=== PATIENT | female | born 1990 | race Caucasian/White ===

== ENCOUNTER 2022-03-21 21:11 | Day surgery (SDC) | payer MEDICAID ==
[2022-03-21 21:58] LABS: BASOPHILS # (AUTO) 0.1 10^3/uL (0.0-0.1); BASOPHILS % (AUTO) 0.9 %; EOSINOPHILS # (AUTO) 0.4 10^3/uL (0.0-0.7); EOSINOPHILS % (AUTO) 4.1 %; HCT - HEMATOCRIT 39.3 % (37.0-47.0); HGB - HEMOGLOBIN 12.9 g/dL (12.0-16.0); LYMPHOCYTES % (AUTO) 32.3 %; MEAN CORPUSCULAR HEMOGLOBIN 30.4 pg (27.0-31.0); MEAN CORPUSCULAR HGB CONC 32.8 g/dL (32.0-36.0); MEAN CORPUSCULAR VOLUME 92.7 fL (81.0-99.0); MEAN PLATELET VOLUME 9.6 fL (7.9-10.8); MONOCYTES # (AUTO) 0.6 10^3/uL (0.0-1.0); MONOCYTES % (AUTO) 6.3 %; NEUTROPHILS # (AUTO) 5.2 10^3/uL (1.5-6.6); NEUTROPHILS % (AUTO) 56.2 %; PLT - PLATELET COUNT 214 10^3/uL (130-450); RED BLOOD COUNT 4.24 10^6/uL (4.20-5.40); RED CELL DISTRIBUTION WIDTH 13.2 % (12.0-15.0); WHITE BLOOD COUNT 9.3 x10^3/uL (4.8-10.8)
[2022-03-21 21:59] LABS: BILIRUBIN,URINE NEGATIVE (NEGATIVE); GLUCOSE, URINE (UA) NEGATIVE (NEGATIVE); KETONES,URINE (UA) NEGATIVE (NEGATIVE); LEUKOCYTE ESTERASE, URINE MODERATE (NEGATIVE); NITRITE,URINE NEGATIVE (NEGATIVE); OCCULT BLOOD,URINE NEGATIVE (NEGATIVE); PH,URINE 5.5 PH (5.0-7.5); PROTEIN,URINE NEGATIVE (NEGATIVE); UROBILINOGEN,URINE 0.2 (NORMAL) E.U./dL (NORMAL)
[2022-03-21 22:05] LABS: CLARITY,URINE HAZY (CLEAR)
[2022-03-21 22:12] LABS: RBC,URINE 0-5 /HPF (0-5); SQUAMOUS EPITHELIAL CELL,UR MOD Squamous (<= Few)
[2022-03-21 22:13] LABS: BACTERIA,URINE Few /HPF (None Seen)
[2022-03-21 22:13] LABS: ALBUMIN 4.2 g/dL (3.2-5.5); ALBUMIN/GLOBULIN RATIO 1.8 (1.0-2.2); BILIRUBIN,TOTAL 0.6 mg/dL (0.2-1.0); CALCIUM 9.2 mg/dL (8.5-10.3); CREATININE 0.6 mg/dL (0.4-1.0); POTASSIUM 3.9 mmol/L (3.5-5.0); TOTAL PROTEIN 6.6 g/dL (6.7-8.2)
--- NOTE | 2022-03-21 23:11 | Ultrasound Report ---
PROCEDURE: OB First Trimester w/TV INDICATIONS: ABDOMINAL CRAMPING PREG OUTSIDE/PRIOR DATING DATA: Last menstrual period (LMP): 01/30/2022. LMP-based estimated date of delivery (AMITA): 11/06/2022. TECHNIQUE: Real-time scanning was performed of the fetus and maternal pelvic organs, with image documentation. Endovaginal scanning was also performed to better visualize the fetus and maternal ovaries. COMPARISON: None. FINDINGS: Embryo: No intrauterine gestational sac. Small uterine subchorionic hemorrhage measuring at 2.5 x 2. 8 x 2.4 cm. Measurement variability in dating: +/- 4 weeks by LMP, +/- 7 days by mean sac diameter (use before 6 weeks gestation if crown-rump length not able to be measured), +/- 5 days by crown-rump length (6-12 weeks gestation). Maternal organs: Cyst adjacent to the left ovary with a hypoechoic/anechoic center with suspected yol k sac and pole measuring 0.4 cm, gestational age 6 weeks 1 day. Heart rate: Not seen. IMPRESSION: 1. Imaging findings consistent with left adnexa ectopic . Estimated gestational age 6 weeks 1 day. 2. No intrauterine gestational sac to suggest heterotopic . 3. Suspect small intrauterine subchorionic hemorrhage. Results were communicated to Dr. Alonzo at 03/21/2022 11:08 PM PDT. Reviewed by: Tay Moe MD on 03/21/2022 11:10 PM PDT Approved by: Tay Moe MD on 03/21/2022 11:10 PM PDT Station ID: [id number]
[2022-03-21] MEDS ORDERED: RHO(D) IMMUNE GLOBULIN 300 MCG SYRINGE IM ONE (23:39)
[2022-03-22] MEDS ORDERED: RHO(D) IMMUNE GLOBULIN 300 MCG SYRINGE ONE (00:24)
--- NOTE | 2022-03-22 00:30 | ED Physician Documentation ---
PD HPI ABD PAIN - Stated complaint Stated Complaint: ECTOPIC ? - Chief complaint Chief Complaint: Abd Pain - History obtained from History obtained from: Patient - Additional information Additional information: Patient is a G2, P0 presenting for evaluation of concerns for ectopic . Her last menstrual period was January 30. She has been evaluated at [facility] in [place] as she has been considering an elective . She has had multiple ultrasounds including yesterday as well as lab draws with no signs of an intrauterine . Based on her elevated hCG levels, the expressed concern for possible ectopic and called her this afternoon to come to the emergency department for evaluation. Patient reports having lower abdominal cramping for the last week but no vaginal bleeding. She denies dizziness, lightheadedness or syncope. Her blood type is O-. She denies using other medications. Review of Systems Constitutional: denies: Fever Nose: denies: Congestion Cardiac: denies: Chest pain / pressure GI: reports: Abdominal Pain (Lower abdominal cramping). denies: Vomiting : denies: Dysuria, Discharge, Vaginal bleeding Skin: denies: Rash Musculoskeletal: denies: Back pain Neurologic: denies: Headache PD PAST MEDICAL HISTORY - Present Medications Home Medications: Ambulatory Orders Medication Instructions Recorded Confirmed No Known Home Medications 03/21/22 03/21/22 - Allergies Allergies/Adverse Reactions: Allergies Allergy/AdvReac Type Severity Reaction Status Date / Time No Known Drug Allergies Allergy Verified 03/21/22 21:22 PD ED PE NORMAL - General General: Alert and oriented X 3, No acute distress, Well developed/nourished - HEENT HEENT: Atraumatic, Moist mucous membranes - Neck Neck: Supple, no meningeal sign - Cardiac Cardiac: RRR, Strong equal pulses - Respiratory Respiratory: No respiratory distress, Clear bilaterally - Abdomen Abdomen: Normal bowel sounds, Soft, Non tender, Non distended - Female Female : Deferred - Derm Derm: Warm and dry - Extremities Extremities: No edema - Neuro Neuro: Normal speech Results - Vitals Vitals: Vital Signs - 24 hr 03/21/22 03/21/22 03/22/22 21:17 23:19 00:17 Temperature 36.3 C L Heart Rate 74 60 64 Respiratory 18 18 16 Rate Blood Pressure 116/56 L 103/55 L 102/59 L O2 Saturation 99 99 99 Oxygen O2 Source Room air - Labs Labs: Laboratory Tests 03/21/22 03/21/22 03/21/22 21:45 21:49 21:49 WBC 9.3 RBC 4.24 Hgb 12.9 Hct 39.3 MCV 92.7 MCH 30.4 MCHC 32.8 RDW 13.2 Plt Count 214 MPV 9.6 Neut # (Auto) 5.2 Lymph # (Auto) 3.0 [place] # (Auto) 0.6 Eos # (Auto) 0.4 Baso # (Auto) 0.1 Absolute Nucleated RBC 0.00 Nucleated RBC % 0.0 Sodium Potassium Chloride Carbon Dioxide Anion Gap BUN Creatinine Estimated GFR (MDRD) Glucose Calcium Total Bilirubin AST ALT Alkaline Phosphatase Total Protein Albumin Globulin Albumin/Globulin Ratio Lipase HCG, Quant Urine Color STRAW Urine Clarity HAZY Urine pH 5.5 Ur Specific [place] <=1.005 Urine Protein NEGATIVE Urine Glucose (UA) NEGATIVE Urine Ketones NEGATIVE Urine Occult Blood NEGATIVE Urine Nitrite NEGATIVE Urine Bilirubin NEGATIVE Urine Urobilinogen 0.2 (NORMAL) Ur Leukocyte Esterase MODERATE H Urine RBC 0-5 Urine WBC 6-10 H Ur Squamous Epith Cells MOD Squamous H Urine Bacteria Few Ur Microscopic Review INDICATED Urine Culture Comments NOT INDICATED Blood Type O NEGATIVE 03/21/22 03/21/22 21:49 21:49 WBC RBC Hgb Hct MCV MCH MCHC RDW Plt Count MPV Neut # (Auto) Lymph # (Auto) [place] # (Auto) Eos # (Auto) Baso # (Auto) Absolute Nucleated RBC Nucleated RBC % Sodium 133 L Potassium 3.9 Chloride 104 Carbon Dioxide 22 Anion Gap 7.0 BUN 10 Creatinine 0.6 Estimated GFR (MDRD) 117 Glucose 82 Calcium 9.2 Total Bilirubin 0.6 AST 15 ALT 15 Alkaline Phosphatase 37 L Total Protein 6.6 L Albumin 4.2 Globulin 2.4 Albumin/Globulin Ratio 1.8 Lipase 38 HCG, Quant 39540.00 Urine Color Urine Clarity Urine pH Ur Specific [place] Urine Protein Urine Glucose (UA) Urine Ketones Urine Occult Blood Urine Nitrite Urine Bilirubin Urine Urobilinogen Ur Leukocyte Esterase Urine RBC Urine WBC Ur Squamous Epith Cells Urine Bacteria Ur Microscopic Review Urine Culture Comments Blood Type PD MEDICAL DECISION MAKING - ED course Complexity details: reviewed results, re-evaluated patient, d/w patient ED course: 2312 D/ Dr. Coombs (OB) Regarding ectopic . He will come evaluate the patient. Patient presenting with concerns for ectopic . Hemodynamically she is stable. Labs reviewed. She is O-. Ultrasound is concerning for ectopic in the left adnexa. hCG level is 17,000. Discussed with on-call OB who is evaluated the patient and consented her for D&C. He has ordered RhoGAM. Patient has remained hemodynamically stable here. - Critical Care Time(min): 31 Time Includes: Direct patient care, Reassess patient, Medical consult Departure - Departure Disposition: ED Transfer to [facility] Clinical Impression: Ectopic Condition: Stable
[2022-03-22] MEDS ORDERED: PROPOFOL 200 MG/20 ML VIAL IVP ONE (00:33)
[2022-03-22] MEDS ORDERED: MIDAZOLAM 2 MG/2 ML VIAL ONE (00:33)
[2022-03-22] MEDS ORDERED: SUCCINYLCHOLINE 200 MG/10 ML VIAL ONE (00:34)
[2022-03-22] MEDS ORDERED: ROCURONIUM 50 MG/5 ML VIAL ONE ×2 (00:34→03:25)
[2022-03-22] MEDS ORDERED: fentaNYL 100 MCG/2 ML VIAL ONE (00:34)
[2022-03-22] MEDS ORDERED: CEFAZOLIN 2G/50ML 0.9% NS 2 GM/50 ML BAG IV ONE (00:47)
[2022-03-22] MEDS ORDERED: BUPIVACAINE 0.25% PF 10 ML VIAL ONE (00:59)
[2022-03-22] MEDS ORDERED: LIDOCAINE MPF 2%-EPI 1:200000 20 ML VIAL ONE (00:59)
[2022-03-22] MEDS ORDERED: BUPIVACAINE 0.5% PF 30 ML VIAL ONE (01:00)
[2022-03-22] MEDS ORDERED: DEXAMETHASONE 4 MG/ML VIAL ONE (01:22)
[2022-03-22] MEDS ORDERED: ONDANSETRON 4 MG/2 ML VIAL ONE (01:22)
--- NOTE | 2022-03-22 01:26 | ANESTHESIA ---
Pre-Anesthesia VS, & Labs - Diagnosis Left adenxal ectopic - Procedure laparoscopic left salpingectomy Vital Signs: Temp Pulse Resp BP Pulse Ox O2 Flow Rate 36.3 C L 64 16 102/59 L 99 03/21/22 21:17 03/22/22 00:17 03/22/22 00:17 03/22/22 00:17 03/22/22 00:17 Height: 6 ft Weight (kg): 67.222 kg Body Mass Index: 20.0 BMI Classification: Normal - NPO Other Last Food Intake: 2030-salad with chicken - Is Patient ?: Yes - Lab Results Current Lab Results: Laboratory Tests 03/21/22 21:49: HCG, Quant 75427.00 03/21/22 21:49: Sodium 133 L, Potassium 3.9, Chloride 104, Carbon Dioxide 22, Anion Gap 7.0, BUN 10, Creatinine 0.6, Estimated GFR (MDRD) 117, Glucose 82, Calcium 9.2, Total Bilirubin 0.6, AST 15, ALT 15, Alkaline Phosphatase 37 L, Total Protein 6.6 L, Albumin 4.2, Globulin 2.4, Albumin/Globulin Ratio 1.8, Lipase 38 03/21/22 21:49: WBC 9.3, RBC 4.24, Hgb 12.9, Hct 39.3, MCV 92.7, MCH 30.4, MCHC 32.8, RDW 13.2, Plt Count 214, MPV 9.6, Neut # (Auto) 5.2, Lymph # (Auto) 3.0, [place] # (Auto) 0.6, Eos # (Auto) 0.4, Baso # (Auto) 0.1, Absolute Nucleated RBC 0.00, Nucleated RBC % 0.0 03/21/22 21:49: Blood Type O NEGATIVE Lab results reviewed: Yes Fish Bones: 03/21/22 21:49 03/21/22 21:49 Home Medications and Allergies Home Medications: Ambulatory Orders No Known Home Medications 03/21/22 No Known Home Medications 03/21/22 Allergies/Adverse Reactions: Allergies Allergy/AdvReac Type Severity Reaction Status Date / Time No Known Drug Allergies Allergy Verified 03/21/22 21:22 Anes History & Medical History - Anesthetic History Family history of Anesthesia Complications: Denies Family history of Malignant Hyperthermia: Denies - Medical History Cardiovascular: reports: None Pulmonary: reports: None Gastrointestinal: reports: None Urinary: reports: None Neuro: reports: None Musculoskeletal: reports: None Endocrine/Autoimmune: reports: None Blood Disorders: reports: None Skin: reports: None Psychosocial: reports: Depression, Anxiety, Cannabis (smokes daily), Other (remote history of meth use) Exam General: Alert, Oriented x3, Cooperative, No acute distress Mouth Openin Fingerbreadth Neck Mobility: Normal Mallampati classification: I Thyromental Distance: 4-6 cm Mental/Cognitive Status: Alert/Oriented X3, Normal for patient Plan Anesthesia Type: General (RSI) Consent for Procedure(s) Verified and Reviewed: Yes Code Status: Attempt Resuscitation ASA classification: 2-Mild systemic disease Is this case an emergency?: Yes
[2022-03-22] MEDS ORDERED: GLYCOPYRROLATE 1 MG/5 ML VIAL ONE (01:55)
[2022-03-22] MEDS ORDERED: ATROPINE 0.4 MG/ML VIAL IVP ONE (02:02)
[2022-03-22] MEDS ORDERED: BUPIVACAINE 0.25% PF 10 ML VIAL SUBQ ONE (02:09)
[2022-03-22] MEDS ORDERED: ACETAMINOPHEN 1,000 MG/100 ML 1,000 MG/100 ML BAG IV ONE (02:48)
[2022-03-22] MEDS ORDERED: HYDROmorphone 1 MG/ML CARPUJECT ONE (02:50)
[2022-03-22] MEDS ORDERED: SEVOFLURANE 250 ML LIQUID INH ONE (03:39)
[2022-03-22] MEDS ORDERED: SUGAMMADEX 200 MG/2 ML VIAL IVP ONE (03:44)
[2022-03-22] MEDS ORDERED: LACTATED RINGERS 1,000 ML IV ONE (03:58)
[2022-03-22] MEDS ORDERED: ONDANSETRON 4 MG/2 ML VIAL IVP PRN ×2 (04:06→04:15)
[2022-03-22] MEDS ORDERED: MORPHINE 2 MG/ML CARPUJECT IVP PRN ×2 (04:06→04:15)
[2022-03-22] MEDS ORDERED: NALOXONE 0.4 MG/ML VIAL IVP PRN ×2 (04:06→04:15)
[2022-03-22] MEDS ORDERED: HYDROmorphone 0.5 MG/0.5 ML SYRINGE IVP PRN ×2 (04:06→04:15)
[2022-03-22] MEDS ORDERED: ATROPINE ABBOJECT 1 MG/10 ML SYRINGE IVP PRN ×2 (04:06→04:15)
[2022-03-22] MEDS ORDERED: fentaNYL 100 MCG/2 ML VIAL IVP PRN ×2 (04:06→04:15)
[2022-03-22] MEDS ORDERED: HYDROcod/ACETAM 5/325 MG TABLET PO PRN (04:21)
--- NOTE | 2022-03-22 04:21 | ANESTHESIA POST OP EVALUATION ---
Anesthesia Post Eval - Post Anesthesia Eval Vitals: Last Vital Signs Temp 37.3 C 03/22/22 04:10 Pulse 97 03/22/22 04:15 Resp 14 03/22/22 04:15 BP 99/73 03/22/22 04:15 Pulse Ox 100 03/22/22 04:15 O2 Flow Rate CV Function Including HR & BP: Stable Pain Control: Satisfactory Nausea & Vomiting: Negative Mental Status: Baseline Respiratory Status: Airway Patent Hydration Status: Satisfactory Anesthesia Complications: None
--- NOTE | 2022-03-22 04:29 | HISTORY & PHYSICAL EXAMINATION ---
HPI - History Obtained From History obtained from: Patient Exam limitations: Clinical condition - History of Present Illness Severity at the worst: reports: Mild Pain Quality: reports: Throbbing Context-Pain started w/: reports: Palpation, Position Timing: reports: Intermittent Duration: reports: Days: Worsened by: reports: Palpation ([facility] and they found that she had an left tubal . She came to the ED and was confirmed. Operation was suggested and she accepted.) PMH/PSH - Past Medical History Cardiovascular: positive: None Respiratory: positive: None Neuro: positive: None Endocrine/Autoimmune: positive: None GI: positive: None : positive: None Musculoskeletal: positive: None Derm: positive: None Meds/Allgy - Home Medications Home Medications: Ambulatory Orders Medication Instructions Recorded Confirmed Acetaminophen [Acetaminophen Extra 1,000 mg PO Q8H PRN #60 tablet 03/22/22 Strength] oxyCODONE [Roxicodone] 2.5 - 5 mg PO Q4H PRN #24 tablet 03/22/22 - Allergies Allergies/Adverse Reactions: Allergies Allergy/AdvReac Type Severity Reaction Status Date / Time No Known Drug Allergies Allergy Verified 03/21/22 21:22 Exam - Vital Signs Vital Signs: Vital Signs x48h Temp Pulse Resp BP Pulse Ox 03/22/22 04:20 85 10 L 104/61 98 03/22/22 04:15 97 14 99/73 100 03/22/22 04:10 99.1 F 88 10 L 94/58 L 99 03/22/22 04:07 91 10 L 103/62 100 03/22/22 04:02 101 H 14 114/72 100 03/22/22 03:58 99.9 F 117 H 16 102/56 L 100 03/22/22 00:17 64 16 102/59 L 99 03/21/22 23:19 60 18 103/55 L 99 03/21/22 21:17 97.3 F L 74 18 116/56 L 99 Results - Lab Results Fish Bones: 03/21/22 21:49 03/21/22 21:49 Other Lab Results: Lab Results x24hrs 03/22/22 03/21/22 03/21/22 Range/Units 00:39 21:49 21:49 WBC (4.8-10.8) x10^3/uL RBC (4.20-5.40) 10^6/uL Hgb (12.0-16.0) g/dL Hct (37.0-47.0) % MCV (81.0-99.0) fL MCH (27.0-31.0) pg MCHC (32.0-36.0) g/dL RDW (12.0-15.0) % Plt Count (130-450) 10^3/uL MPV (7.9-10.8) fL Neut # (Auto) (1.5-6.6) 10^3/uL Lymph # (Auto) (1.5-3.5) 10^3/uL [place] # (Auto) (0.0-1.0) 10^3/uL Eos # (Auto) (0.0-0.7) 10^3/uL Baso # (Auto) (0.0-0.1) 10^3/uL Absolute Nucleated RBC x10^3/uL Nucleated RBC % /100WBC Sodium 133 L (135-145) mmol/L Potassium 3.9 (3.5-5.0) mmol/L Chloride 104 (101-111) mmol/L Carbon Dioxide 22 (21-32) mmol/L Anion Gap 7.0 (6-13) BUN 10 (6-20) mg/dL Creatinine 0.6 (0.4-1.0) mg/dL Estimated GFR (MDRD) 117 (>89) Glucose 82 (70-100) mg/dL Calcium 9.2 (8.5-10.3) mg/dL Total Bilirubin 0.6 (0.2-1.0) mg/dL AST 15 (10-42) IU/L ALT 15 (10-60) IU/L Alkaline Phosphatase 37 L (42-121) IU/L Total Protein 6.6 L (6.7-8.2) g/dL Albumin 4.2 (3.2-5.5) g/dL Globulin 2.4 (2.1-4.2) g/dL Albumin/Globulin Ratio 1.8 (1.0-2.2) Lipase 38 (22-51) U/L HCG, Quant 38885.00 mIU/mL Urine Color Urine Clarity (CLEAR) Urine pH (5.0-7.5) PH Ur Specific [place] (1.002-1.030) Urine Protein (NEGATIVE) mg/dL Urine Glucose (UA) (NEGATIVE) mg/dL Urine Ketones (NEGATIVE) mg/dL Urine Occult Blood (NEGATIVE) Urine Nitrite (NEGATIVE) Urine Bilirubin (NEGATIVE) Urine Urobilinogen (NORMAL) E.U./dL Ur Leukocyte Esterase (NEGATIVE) Urine RBC (0-5) /HPF Urine WBC (0-5) /HPF Ur Squamous Epith Cells (<= Few) Urine Bacteria (None Seen) /HPF Ur Microscopic Review Urine Culture Comments SARS-CoV-2 (PCR) NOT DETECTED Blood Type 03/21/22 03/21/22 03/21/22 Range/Units 21:49 21:49 21:45 WBC 9.3 (4.8-10.8) x10^3/uL RBC 4.24 (4.20-5.40) 10^6/uL Hgb 12.9 (12.0-16.0) g/dL Hct 39.3 (37.0-47.0) % MCV 92.7 (81.0-99.0) fL MCH 30.4 (27.0-31.0) pg MCHC 32.8 (32.0-36.0) g/dL RDW 13.2 (12.0-15.0) % Plt Count 214 (130-450) 10^3/uL MPV 9.6 (7.9-10.8) fL Neut # (Auto) 5.2 (1.5-6.6) 10^3/uL Lymph # (Auto) 3.0 (1.5-3.5) 10^3/uL [place] # (Auto) 0.6 (0.0-1.0) 10^3/uL Eos # (Auto) 0.4 (0.0-0.7) 10^3/uL Baso # (Auto) 0.1 (0.0-0.1) 10^3/uL Absolute Nucleated RBC 0.00 x10^3/uL Nucleated RBC % 0.0 /100WBC Sodium (135-145) mmol/L Potassium (3.5-5.0) mmol/L Chloride (101-111) mmol/L Carbon Dioxide (21-32) mmol/L Anion Gap (6-13) BUN (6-20) mg/dL Creatinine (0.4-1.0) mg/dL Estimated GFR (MDRD) (>89) Glucose (70-100) mg/dL Calcium (8.5-10.3) mg/dL Total Bilirubin (0.2-1.0) mg/dL AST (10-42) IU/L ALT (10-60) IU/L Alkaline Phosphatase (42-121) IU/L Total Protein (6.7-8.2) g/dL Albumin (3.2-5.5) g/dL Globulin (2.1-4.2) g/dL Albumin/Globulin Ratio (1.0-2.2) Lipase (22-51) U/L HCG, Quant mIU/mL Urine Color STRAW Urine Clarity HAZY (CLEAR) Urine pH 5.5 (5.0-7.5) PH Ur Specific [place] <=1.005 (1.002-1.030) Urine Protein NEGATIVE (NEGATIVE) mg/dL Urine Glucose (UA) NEGATIVE (NEGATIVE) mg/dL Urine Ketones NEGATIVE (NEGATIVE) mg/dL Urine Occult Blood NEGATIVE (NEGATIVE) Urine Nitrite NEGATIVE (NEGATIVE) Urine Bilirubin NEGATIVE (NEGATIVE) Urine Urobilinogen 0.2 (NORMAL) (NORMAL) E.U./dL Ur Leukocyte Esterase MODERATE H (NEGATIVE) Urine RBC 0-5 (0-5) /HPF Urine WBC 6-10 H (0-5) /HPF Ur Squamous Epith Cells MOD Squamous H (<= Few) Urine Bacteria Few (None Seen) /HPF Ur Microscopic Review INDICATED Urine Culture Comments NOT INDICATED SARS-CoV-2 (PCR) Blood Type O NEGATIVE
--- NOTE | 2022-03-22 04:33 | OPERATIVE REPORT ---
Operative Report - General Planned Procedure: Laparoscopy and suction D&C. Pre-Op Diagnosis: Left tubal ectopic Procedure Performed: Laparoscopic left salpingectomy and suction D&C Lysis of extensive pelvic adhesions Post Op Diagnosis: Left tubal ectopic and severe pelvic adhesions, - Procedure Note Primary Surgeon: Dr. Coombs Anesthesia Technique: General ET tube Pathology: Left fallopian tube and products of conception and an endometrial curette Estimated Blood Loss (mL): 50 Indications: Elevated beta hCG without gestational sac by ultrasound Findings: Left tubal ectopic with extensive pelvic adhesions and perihepatic adhesion Uterine cavity 8 centimeter in depth Complications: None - Other Other Information/Narrative: Date of surgery:March 22, 2022 Surgeon: Dr. 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 Procedure performed: Laparoscopy left salpingectomy lysis of adhesions and Suction dilation and curettage Anesthesia: General Estimated blood loss: Findings: Appearance of external genitalia normal appearance of vagina normal appearance of cervix normal uterine size 8 centimeter mid position mobile adnexal masses:Not well palpated The uterus was slightly enlarged and covered by omental adhesions The left adnexa was not well visualized due to this omental adhesions and when it was visualized after dissection of the adhesion the left tube showed intra tubal ectopic in the ampulla portion and ovary was severely covered by the adhesion. Right tube was normal in appearance and in length but ovary was a covered by the severe adhesions. There was extensive perihepatic adhesion There was a mild hemoperitoneum Specimen: Products of conception with left tube and endometrial curettings Complications: None Disposition: Stable to PACU Indications for procedure History: This is a 32-year-old 2 para 0 AB 1 ectopic 1 who presented to the emergency department with abnormal ultrasound finding and occasional abdominal pain. Quantitative beta-hCG was performed and noted to be 17,000. On ultrasound the following findings were noted: No intrauterine gestational sac was noted and there was a complex left adnexal mass and gestational sac was noted without heart movement. Small amount of free fluid was noted in the cul-de-sac. The patient was noted to be hemodynamically stable. The patient was found to be on inappropriate candidate for medical management due to high level of beta-hCG and the size of gestational sac of the left tube. Surgical risk: The patient was informed of the risks and benefits of a diagnostic laparoscopy. The risks included, but were not limited to, bleeding, infection, injury to internal organs, possible blood transfusion, possible hysterectomy, and possible oophorectomy. The patient was counseled on the potential loss of fertility following unilateral salpingectomy. The patient's was counseled on possible laparotomy and all other indicated procedures. The patient expressed understanding of the risks involved, all questions were answered, and the patient consented to the procedure. Description of the procedure The patient was taken to the operating room where a timeout was performed to confirm correct patient and correct procedure. The patient was given preoperative prophylactic intravenous antibiotics. General anesthesia was established. The patient was then positioned on the operating table in the dorsal lithotomy position with the legs supported using stirrups. All pressure points were padded and a Nisha hugger was placed to maintain control of core body temperature. The patient was then prepped and draped in the usual sterile fashion. A bimanual exam was performed and the uterus was found to be slightly increased in size, midline, and mobile. The adnexa were palpated bilaterally and the finding was not conclusive. A straight cath was used to empty the bladder. Operative technique: The speculum was inserted and anterior lip of the cervix was grasped with a single-tooth tenaculum. No active bleeding was noted. The uterine cavity was measured 8 cm and the cervix was dilated with a 12 Hanks dilator. With #2 sharp curette the entire endometrial cavity was systemically curettaged and moderate amount of tissue was obtained. The 8 mm suction curette was advanced to the fundus and then suction was applied and the curette was rotated in a circular fashion as the curette was withdrawn. The suction was relieved at the internal os and a curette was again advanced to the fundus. This was repeated 3 times. When no further tissues were obtained, the suction curette was withdrawn, and a sharp curette was advanced to the fundus. The uterus was curetted in a systematic manner covering all surfaces until a gritty texture was noted throughout. The suction curette was introduced one final time and the uterine cavity was cleared of any remaining curettings. The suction curette was then withdrawn and the single-tooth tenaculum was removed from the anterior lip of the cervix. The products obtained from the suction dilation and curetting did not appear consistent with products of conception. The decision was then made to proceed with the diagnostic laparoscopy. A HUMI manipulator was placed through the cervix into the uterus for uterine manipulation. The speculum was then removed from the vagina. Good hemostasis was noted. Attention was turned to the abdomen where a 5 mm horizontal incision was made in the infraumbilical region and a 5 mm trocar was introduced under direct visualization with the laparoscope within the trocar. It was not satisfactory therefore Veress needle was used to produce pneumoperitoneum. Safety test was given by using water through the Veress needle. A 5 mm trocar was introduced after achievement of pneumoperitoneum. The laparoscope was then placed through the trocar and diagnostic laparoscopy was performed. The findings was as above described. A 5 mm horizontal incision was made in the left lower quadrant after injecting quarter percent of Marcaine. A 5 mm trocar was introduced under direct visualization. The left fallopian tube was noted to be grossly swollen with an ectopic . This was well visualized after dissecting the omental adhesion on the posterior of the uterus. A 10 mm incision was then made in the right lower quadrant after injecting the local anesthetics . A 10 mm trocar was then introduced under direct visualization. Due to extensive adhesion and damage to the tube, the decision was made to proceed with a salpingectomy. The fallopian tube was grasped at the fimbriated end using atraumatic graspers and the LigaSure was used to coagulate and cut the fallopian tube proximal to the ectopic. The fallopian tube was then coagulated and cut distal to the ectopic . The mesosalpinx was coagulated and cut using the LigaSure. The portion of the fallopian tube containing products of conception was then placed into an Endobag, removed, and sent to pathology. Meticulous progressive lysis of adhesion was made over the left ovary and extensive adhesion was noted on the right side. The fallopian tube was normal in appearance and in length after dissecting all the adhesions and ovary was normal in appearance as well. 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 This was all dissected by using laparoscopic scissors and LigaSure. Free blood was suctioned from the cul-de-sac and hemostasis was achieved by co agulating with monopolar scissors and LigaSure. The pelvis was thoroughly irrigated and good hemostasis was noted. The 10 mm port was removed and the fascial incision was closed using 2-0 Vicryl in interrupted sutures and the pneumoperitoneum was evacuated and the remaining ports were removed. The skin was reapproximated using Dermabond. Attention was then turned to the perineum. The HUMI manipulator was removed and hemostasis was confirmed. All sponges, needle, and instrument counts were noted to be correct x2 at the end of the procedure. The patient tolerated the procedure well and was transferred to the recovery room in stable condition.
[2022-03-22] MEDS ORDERED: LACTATED RINGERS 1,000 ML IV SCH ×2 (05:00)
[2022-03-22 09:11] VITALS: BP 108/53
--- NOTE | 2022-03-22 10:25 | PROVIDER PROGRESS NOTE ---
Subjective - Prog Note Date Prog Note Date: 03/22/22 Prog Note Time: 10:20 - Subjective Pt reports feeling: Improved (Feeling good, no need for pain medication Wound: C/D/I) Objective - Vital Signs/Intake & Output Vital Signs: Vital Signs x48h Temp Pulse Pulse Resp BP BP Pulse Ox 03/22/22 09:00 50 L 16 108/53 L 99 03/22/22 08:00 98.1 F 51 L 15 102/52 L 98 03/22/22 07:01 55 L 16 114/53 L 90 L 03/22/22 06:30 53 L 16 110/54 L 99 03/22/22 06:00 78 18 99/47 L 97 03/22/22 05:30 68 18 98/45 L 96 03/22/22 05:15 67 16 98/44 L 95 03/22/22 05:00 98.2 F 71 16 94/44 L 96 03/22/22 04:59 98.2 F 71 16 93/50 L 96 03/22/22 04:35 99.0 F 91 17 103/57 L 100 03/22/22 04:30 78 10 L 98/54 L 97 03/22/22 04:25 100 24 112/61 100 03/22/22 04:20 85 10 L 104/61 98 03/22/22 04:15 97 14 99/73 100 03/22/22 04:10 99.1 F 88 10 L 94/58 L 99 03/22/22 04:07 91 10 L 103/62 100 03/22/22 04:02 101 H 14 114/72 100 03/22/22 03:58 99.9 F 117 H 16 102/56 L 100 Intake & Output: Intake & Output 03/19/22 03/20/22 03/21/22 03/22/22 23:59 23:59 23:59 23:59 Intake Total 230 Balance 230 - Objective Abdomen: positive: Non-tender (soft and active bowel sound) - Lab Results Fish Bones: 03/21/22 21:49 03/21/22 21:49 Other Labs: Lab Results x24hrs 03/22/22 03/21/22 03/21/22 Range/Units 00:39 21:49 21:49 WBC (4.8-10.8) x10^3/uL RBC (4.20-5.40) 10^6/uL Hgb (12.0-16.0) g/dL Hct (37.0-47.0) % MCV (81.0-99.0) fL MCH (27.0-31.0) pg MCHC (32.0-36.0) g/dL RDW (12.0-15.0) % Plt Count (130-450) 10^3/uL MPV (7.9-10.8) fL Neut # (Auto) (1.5-6.6) 10^3/uL Lymph # (Auto) (1.5-3.5) 10^3/uL [place] # (Auto) (0.0-1.0) 10^3/uL Eos # (Auto) (0.0-0.7) 10^3/uL Baso # (Auto) (0.0-0.1) 10^3/uL Absolute Nucleated RBC x10^3/uL Nucleated RBC % /100WBC Sodium 133 L (135-145) mmol/L Potassium 3.9 (3.5-5.0) mmol/L Chloride 104 (101-111) mmol/L Carbon Dioxide 22 (21-32) mmol/L Anion Gap 7.0 (6-13) BUN 10 (6-20) mg/dL Creatinine 0.6 (0.4-1.0) mg/dL Estimated GFR (MDRD) 117 (>89) Glucose 82 (70-100) mg/dL Calcium 9.2 (8.5-10.3) mg/dL Total Bilirubin 0.6 (0.2-1.0) mg/dL AST 15 (10-42) IU/L ALT 15 (10-60) IU/L Alkaline Phosphatase 37 L (42-121) IU/L Total Protein 6.6 L (6.7-8.2) g/dL Albumin 4.2 (3.2-5.5) g/dL Globulin 2.4 (2.1-4.2) g/dL Albumin/Globulin Ratio 1.8 (1.0-2.2) Lipase 38 (22-51) U/L HCG, Quant 52392.00 mIU/mL Urine Color Urine Clarity (CLEAR) Urine pH (5.0-7.5) PH Ur Specific [place] (1.002-1.030) Urine Protein (NEGATIVE) mg/dL Urine Glucose (UA) (NEGATIVE) mg/dL Urine Ketones (NEGATIVE) mg/dL Urine Occult Blood (NEGATIVE) Urine Nitrite (NEGATIVE) Urine Bilirubin (NEGATIVE) Urine Urobilinogen (NORMAL) E.U./dL Ur Leukocyte Esterase (NEGATIVE) Urine RBC (0-5) /HPF Urine WBC (0-5) /HPF Ur Squamous Epith Cells (<= Few) Urine Bacteria (None Seen) /HPF Ur Microscopic Review Urine Culture Comments SARS-CoV-2 (PCR) NOT DETECTED Blood Type 03/21/22 03/21/22 03/21/22 Range/Units 21:49 21:49 21:45 WBC 9.3 (4.8-10.8) x10^3/uL RBC 4.24 (4.20-5.40) 10^6/uL Hgb 12.9 (12.0-16.0) g/dL Hct 39.3 (37.0-47.0) % MCV 92.7 (81.0-99.0) fL MCH 30.4 (27.0-31.0) pg MCHC 32.8 (32.0-36.0) g/dL RDW 13.2 (12.0-15.0) % Plt Count 214 (130-450) 10^3/uL MPV 9.6 (7.9-10.8) fL Neut # (Auto) 5.2 (1.5-6.6) 10^3/uL Lymph # (Auto) 3.0 (1.5-3.5) 10^3/uL [place] # (Auto) 0.6 (0.0-1.0) 10^3/uL Eos # (Auto) 0.4 (0.0-0.7) 10^3/uL Baso # (Auto) 0.1 (0.0-0.1) 10^3/uL Absolute Nucleated RBC 0.00 x10^3/uL Nucleated RBC % 0.0 /100WBC Sodium (135-145) mmol/L Potassium (3.5-5.0) mmol/L Chloride (101-111) mmol/L Carbon Dioxide (21-32) mmol/L Anion Gap (6-13) BUN (6-20) mg/dL Creatinine (0.4-1.0) mg/dL Estimated GFR (MDRD) (>89) Glucose (70-100) mg/dL Calcium (8.5-10.3) mg/dL Total Bilirubin (0.2-1.0) mg/dL AST (10-42) IU/L ALT (10-60) IU/L Alkaline Phosphatase (42-121) IU/L Total Protein (6.7-8.2) g/dL Albumin (3.2-5.5) g/dL Globulin (2.1-4.2) g/dL Albumin/Globulin Ratio (1.0-2.2) Lipase (22-51) U/L HCG, Quant mIU/mL Urine Color STRAW Urine Clarity HAZY (CLEAR) Urine pH 5.5 (5.0-7.5) PH Ur Specific [place] <=1.005 (1.002-1.030) Urine Protein NEGATIVE (NEGATIVE) mg/dL Urine Glucose (UA) NEGATIVE (NEGATIVE) mg/dL Urine Ketones NEGATIVE (NEGATIVE) mg/dL Urine Occult Blood NEGATIVE (NEGATIVE) Urine Nitrite NEGATIVE (NEGATIVE) Urine Bilirubin NEGATIVE (NEGATIVE) Urine Urobilinogen 0.2 (NORMAL) (NORMAL) E.U./dL Ur Leukocyte Esterase MODERATE H (NEGATIVE) Urine RBC 0-5 (0-5) /HPF Urine WBC 6-10 H (0-5) /HPF Ur Squamous Epith Cells MOD Squamous H (<= Few) Urine Bacteria Few (None Seen) /HPF Ur Microscopic Review INDICATED Urine Culture Comments NOT INDICATED SARS-CoV-2 (PCR) Blood Type O NEGATIVE - Diagnostic Imaging Diagnostic Imaging Results: positive: Final report reviewed Diagnostic Imaging Comments: C/W left tubal ectopic Assessment/Plan - Problem List (2) Ectopic Qualifiers: Location of ectopic : tubal
--- NOTE | 2022-03-22 10:32 | DISCHARGE SUMMARY ---
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 [facility] went to [facility] for elective and they found that she had an ectopic therefore she was referred to us. The diagnosis was confirmed at the emergency room and surgical team was called for the procedure of laparoscopy. She had a history of spontaneous in 2019 around 6 weeks . - CONSULTS | PROCEDURES Procedures: Suction D&C Laparoscopy left salpingectomy Lysis of severe adhesion - HOSPITAL COURSE Hospital Course: Postoperatively she remained stable and discharge in good condition Operative finding was explained by using pictures taken during the operation and she understood well. Her wound remained intact dry and clean and she did not need to take any pain medication. - ALLERGIES Allergies/Adverse Reactions: Allergies Allergy/AdvReac Type Severity Reaction Status Date / Time No Known Drug Allergies Allergy Verified 03/21/22 21:22 - MEDICATIONS Home Medications: Ambulatory Orders Medication Instructions Recorded Confirmed Acetaminophen [Acetaminophen Extra 1,000 mg PO Q8H PRN #60 tablet 03/22/22 Strength] oxyCODONE [Roxicodone] 2.5 - 5 mg PO Q4H PRN #24 tablet 03/22/22 - PHYSICAL EXAM AT DISCHARGE General Appearance: positive: No acute distress Eyes Bilateral: positive: Normal inspection ENT: positive: ENT inspection nml Neck: positive: Nml inspection Respiratory: positive: No respiratory distress, Breath sounds nml Cardiovascular: positive: Regular rate & rhythm Peripheral Pulses: positive: 0 Abdomen: positive: Non-tender Back: positive: Nml inspection Skin: positive: Color nml Extremities: positive: Non-tender Neurologic/Psychiatric: positive: Oriented x3 - LABS Result Diagrams: 03/21/22 21:49 03/21/22 21:49 - FOLLOW UP Follow Up: 1 week at the office with Dr. Caldera - TIME SPENT Time Spent in Discharge (Minutes): 15"
== END 2022-03-22 10:20 | disposition home or self-care (01) ==
LOC: ED 21:11 → SDS 03-22 00:32 → FBP 03-22 00:55 → SDS 03-22 10:57
PROVIDERS: ATTEND Obstetrics & Gynecology
PROC: 10T24ZZ Resection of Products of Conception, Ectopic, Percutaneous Endoscopic Approach (ICD-10-PCS; 2022-03-22)
PROC: 0UDB7ZX Extraction of Endometrium, Via Natural or Artificial Opening, Diagnostic (ICD-10-PCS; 2022-03-22)
PROC: 0UT64ZZ Resection of Left Fallopian Tube, Percutaneous Endoscopic Approach (ICD-10-PCS; principal; 2022-03-22 01:00)
DX: O00.102 Left tubal pregnancy without intrauterine pregnancy (principal); K66.0 Peritoneal adhesions (postprocedural) (postinfection); Z20.822 Contact with and (suspected) exposure to COVID-19
CPT/HCPCS: 58120; 59151; 76801; 76817; 80053; 81001; 83690; 84702; 85025; 86900; 86901; 87635; 99285; 99291; J0131; J0330; J0690; J1170; J3490; J7120; 81003; 87086

== ENCOUNTER 2022-03-27 08:00 | Outpatient (CLI) | payer MEDICAID ==
[2022-03-27 22:21] LABS: BACTERIAL VAGINOSIS DNA POSITIVE (NEGATIVE); CANDIDA GLABRATA DNA NEGATIVE (NEGATIVE); CANDIDA GROUP DNA NEGATIVE (NEGATIVE); CANDIDA KRUSEI DNA NEGATIVE (NEGATIVE); TRICHOMONAS VAGINALIS DNA POSITIVE (NEGATIVE)
[2022-03-27 23:05] LABS: CHLAMYDIA TRACHOMATIS DNA NEGATIVE (NEGATIVE); NEISSERIA GONORRHOEAE DNA NEGATIVE (NEGATIVE)
== END 2022-03-27 23:59 | disposition home or self-care (01) ==
LOC: LAB.WC 08:00
PROVIDERS: ATTEND Obstetrics & Gynecology
DX: N90.89 Other specified noninflammatory disorders of vulva and perineum (principal); N89.8 Other specified noninflammatory disorders of vagina; Z20.2 Contact with and (suspected) exposure to infections with a predominantly sexual mode of transmission; Z11.3 Encounter for screening for infections with a predominantly sexual mode of transmission
CPT/HCPCS: 81514; 87491; 87591; 87661

== ENCOUNTER 2022-06-05 08:00 | Outpatient (CLI) | payer MEDICAID ==
[2022-06-05 20:54] LABS: CHLAMYDIA TRACHOMATIS DNA NEGATIVE (NEGATIVE); NEISSERIA GONORRHOEAE DNA NEGATIVE (NEGATIVE); TRICHOMONAS VAGINALIS DNA NEGATIVE (NEGATIVE)
== END 2022-06-05 23:59 | disposition home or self-care (01) ==
LOC: LAB.WC 08:00
PROVIDERS: ATTEND Obstetrics & Gynecology
DX: N89.8 Other specified noninflammatory disorders of vagina (principal)
CPT/HCPCS: 87491; 87591; 87661

== ENCOUNTER 2022-08-31 14:09 | Outpatient (CLI) | payer MEDICAID | END 2022-08-31 23:59 | disposition EMS.NT | LOC: EMS 14:09 | DX: S40.212A Abrasion of left shoulder, initial encounter (principal); Y35.93XA Legal intervention, means unspecified, suspect injured, initial encounter; Y92.481 Parking lot as the place of occurrence of the external cause ==

== ENCOUNTER 2022-09-04 08:00 | Outpatient (CLI) | payer MEDICAID ==
[2022-09-04 23:11] LABS: CHLAMYDIA TRACHOMATIS DNA NEGATIVE (NEGATIVE); NEISSERIA GONORRHOEAE DNA NEGATIVE (NEGATIVE)
[2022-09-04 23:20] LABS: BACTERIAL VAGINOSIS DNA POSITIVE (NEGATIVE); CANDIDA GROUP DNA NEGATIVE (NEGATIVE); CANDIDA KRUSEI DNA NEGATIVE (NEGATIVE); TRICHOMONAS VAGINALIS DNA NEGATIVE (NEGATIVE)
[2022-09-04 23:21] LABS: CANDIDA GLABRATA DNA NEGATIVE (NEGATIVE)
== END 2022-09-04 23:59 | disposition home or self-care (01) ==
LOC: LAB.WC 08:00
PROVIDERS: ATTEND Obstetrics & Gynecology
DX: Z11.3 Encounter for screening for infections with a predominantly sexual mode of transmission (principal); Z20.2 Contact with and (suspected) exposure to infections with a predominantly sexual mode of transmission
CPT/HCPCS: 81514; 87491; 87591; 87661

== ENCOUNTER 2022-09-08 17:46 | Outpatient (CLI) | payer MEDICAID ==
[2022-09-10 06:10] LABS: HBsAG SCREEN Negative (Negative)
[2022-09-10 07:09] LABS: RPR Non Reactive (Non Reactive)
[2022-09-11 00:07] LABS: HCV AB Non Reactive (Non Reactive); HIV SCREEN 4TH GENERATION Non Reactive (Non Reactive)
== END 2022-09-08 17:47 | disposition home or self-care (01) ==
LOC: LAB.N 17:46
PROVIDERS: ATTEND Obstetrics & Gynecology
DX: Z20.2 Contact with and (suspected) exposure to infections with a predominantly sexual mode of transmission (principal); Z11.3 Encounter for screening for infections with a predominantly sexual mode of transmission
CPT/HCPCS: 36415; 86592; 86803; 87340; 87389

== ENCOUNTER 2022-12-12 12:30 | Outpatient (CLI) | payer MEDICAID ==
[2022-12-12 17:58] LABS: BASOPHILS % (AUTO) 0.7 %; EOSINOPHILS # (AUTO) 0.2 10^3/uL (0.0-0.7); EOSINOPHILS % (AUTO) 2.8 %; HCT - HEMATOCRIT 38.9 % (37.0-47.0); HGB - HEMOGLOBIN 12.7 g/dL (12.0-16.0); LYMPHOCYTES % (AUTO) 33.1 %; MEAN CORPUSCULAR HEMOGLOBIN 30.2 pg (27.0-31.0); MEAN CORPUSCULAR HGB CONC 32.6 g/dL (32.0-36.0); MEAN CORPUSCULAR VOLUME 92.6 fL (81.0-99.0); MEAN PLATELET VOLUME 10.2 fL (7.9-10.8); MONOCYTES # (AUTO) 0.5 10^3/uL (0.0-1.0); MONOCYTES % (AUTO) 7.8 %; NEUTROPHILS # (AUTO) 3.4 10^3/uL (1.5-6.6); NEUTROPHILS % (AUTO) 55.4 %; PLT - PLATELET COUNT 198 10^3/uL (130-450); RED CELL DISTRIBUTION WIDTH 13.3 % (12.0-15.0); WHITE BLOOD COUNT 6.1 x10^3/uL (4.8-10.8)
[2022-12-12 18:31] LABS: ALBUMIN 3.8 g/dL (3.2-5.5); ALBUMIN/GLOBULIN RATIO 1.4 (1.0-2.2); BILIRUBIN,TOTAL 0.7 mg/dL (0.2-1.0); CALCIUM 8.8 mg/dL (8.5-10.3); CREATININE 0.6 mg/dL (0.4-1.0); POTASSIUM 4.2 mmol/L (3.5-5.0); TOTAL PROTEIN 6.5 g/dL (6.7-8.2)
[2022-12-12 18:35] LABS: THYROID STIMULATING HORMONE 0.5 uIU/mL (0.34-5.60)
== END 2022-12-12 12:45 | disposition home or self-care (01) ==
LOC: LAB.N 12:30
PROVIDERS: ATTEND Family Medicine
DX: R53.81 Other malaise (principal); R53.83 Other fatigue; D64.9 Anemia, unspecified
CPT/HCPCS: 36415; 80053; 83540; 84443; 84466; 85025

== ENCOUNTER 2022-12-13 08:00 | Outpatient (CLI) | payer MEDICAID ==
[2022-12-17 15:09] LABS: GIARDIA LAMBLIA AG EIA Negative (Negative)
== END 2022-12-13 23:52 | disposition home or self-care (01) ==
LOC: LAB.N 08:00
PROVIDERS: ATTEND Family Medicine
DX: R19.7 Diarrhea, unspecified (principal); R53.81 Other malaise; R53.83 Other fatigue
CPT/HCPCS: 87045; 87046; 87177; 87329; 87427

== ENCOUNTER 2023-03-23 15:28 | Outpatient (CLI) | payer MEDICAID ==
[2023-03-23 15:39] LABS: HGB - HEMOGLOBIN 13.6 g/dL (12.0-16.0); MEAN CORPUSCULAR HEMOGLOBIN 30.4 pg (27.0-31.0); MEAN CORPUSCULAR HGB CONC 33.2 g/dL (32.0-36.0); MEAN CORPUSCULAR VOLUME 91.5 fL (81.0-99.0); MEAN PLATELET VOLUME 9.2 fL (7.9-10.8); RED BLOOD COUNT 4.48 10^6/uL (4.20-5.40); RED CELL DISTRIBUTION WIDTH 13.2 % (12.0-15.0); WHITE BLOOD COUNT 6.4 x10^3/uL (4.8-10.8)
[2023-03-25 03:09] LABS: RPR Non Reactive (Non Reactive)
[2023-03-25 20:08] LABS: HIV SCREEN 4TH GENERATION Non Reactive (Non Reactive)
== END 2023-03-23 15:29 | disposition home or self-care (01) ==
LOC: LAB 15:28
PROVIDERS: ATTEND Obstetrics & Gynecology
DX: D64.9 Anemia, unspecified (principal); Z11.3 Encounter for screening for infections with a predominantly sexual mode of transmission
CPT/HCPCS: 36415; 85027; 86592; 87389

== ENCOUNTER 2023-04-22 08:44 | Outpatient (CLI) | payer MEDICAID ==
--- NOTE | 2023-04-23 10:40 | Ultrasound Report ---
LIMITED ULTRASOUND OF RIGHT BREAST: 04/22/2023 CLINICAL: Palpable right breast lump. Comparison is made to exam dated: 04/22/2023 mammogram - [facility]. Color flow and real-time ultrasound of the right breast 6 o'clock region were performed. Sandy scale images of the real-time examination were reviewed. There is a 1.3 cm x 1.2 cm x 0.7 cm oval mass with a circumscribed margin in the right breast at 6 o' clock anterior depth 3 cm from the nipple. This oval mass is hypoechoic with a well-defined boundary . This correlates as palpated and with mammography findings. Color flow imaging demonstrates that t here is no vascularity present. IMPRESSION: PROBABLY BENIGN The 1.3 cm circumscribed mass in the right breast most likely is a fibroadenoma and is probably benig n. A follow-up ultrasound in 6 months is recommended to demonstrate stability. Exam findings were conveyed to the patient. Patient is advised to monitor for significant change. Cli nical follow-up as needed. This exam was interpreted at Station ID: [id number]. Electronically Signed By: Tay Moe M.D. slc/:04/22/2023 11:49:42 Ultrasound BI-RADS: 3 Probably benign BI-RADS CATEGORY: (3) - 3 Ultrasound [id number] 6 month follow-up LATERALITY: (B)
--- NOTE | 2023-04-23 10:40 | Mammography Report ---
BILATERAL DIGITAL DIAGNOSTIC MAMMOGRAM 3D/2D: 04/22/2023 CLINICAL: Palpable right breast lump. Baseline exam. No prior exams were available for comparison. Both breasts are extremely dense, which lowers the sensitivity of mammography (category d />75% gland ular tissue). There is a 1.6 cm oval mass with an obscured and circumscribed margin in the right breast at 6 o'cloc k middle depth. This correlates as palpated. No other significant masses, calcifications, or other findings are seen in either breast. IMPRESSION: INCOMPLETE: NEEDS ADDITIONAL IMAGING EVALUATION The 1.6 cm oval mass in the right breast most likely is a fibroadenoma and is indeterminate. A targeted ultrasound is recommended and will immediately follow. Based on Tyrer-Cuzick model (a risk assessment model), the patient's lifetime risk is 21.0% and her 1 0 year risk is 1.0%. If a patient has an elevated risk, a more comprehensive evaluation should be con sidered and/or a referral to a genetic counselor. The [place] [employer], [employer] [place] [employer], and NCCN Guidelines advise the consideration of Breast MRI as an adjunct to screening mammog flo in patients whose "Lifetime risk to develop breast cancer" is 20% or higher. This exam was interpreted at Station ID: [id number]. NOTE: For mammograms, a report in lay terms will be sent to the patient. Approximately 15% of breast malignancies will not be visualized mammographically. In the management of a palpable breast mass, a negative mammogram must not discourage biopsy of a clinically suspicious lesion. Electronically Signed By: Tay Moe M.D. slc/:04/22/2023 09:30:27 ACR BI-RADS Category 0: Incomplete 3340F PARENCHYMAL PATTERN: (VD) - The breast(s) demonstrate(s) extremely dense parenchyma, limiting the sen sitivity of mammography. BI-RADS CATEGORY: (0) - 0 Ultrasound [id number] Immediate follow-up LATERALITY: (B)
== END 2023-04-22 08:45 | disposition home or self-care (01) ==
LOC: DI 08:44
PROVIDERS: ATTEND Obstetrics & Gynecology
DX: N63.15 Unspecified lump in the right breast, overlapping quadrants (principal)

== ENCOUNTER 2023-05-17 19:25 | Outpatient (CLI) | payer MEDICAID | END 2023-05-17 23:59 | disposition critical access hospital (66) | LOC: EMS 19:25 | DX: R45.851 Suicidal ideations (principal); R45.89 Other symptoms and signs involving emotional state | CPT/HCPCS: A0425; A0429; A0999 ==

== ENCOUNTER 2023-05-17 20:23 | Emergency (ER) | payer MEDICAID ==
[2023-05-17 21:00] LABS: BILIRUBIN,URINE NEGATIVE (NEGATIVE); GLUCOSE, URINE (UA) NEGATIVE (NEGATIVE); KETONES,URINE (UA) TRACE mg/dL (NEGATIVE); LEUKOCYTE ESTERASE, URINE SMALL (NEGATIVE); NITRITE,URINE NEGATIVE (NEGATIVE); OCCULT BLOOD,URINE NEGATIVE (NEGATIVE); PROTEIN,URINE NEGATIVE (NEGATIVE); UROBILINOGEN,URINE 0.2 (NORMAL) E.U./dL (NORMAL)
--- NOTE | 2023-05-17 21:02 | ED Physician Documentation ---
PD HPI MHE - Stated complaint Stated Complaint: SI - Chief complaint Chief Complaint: MHE - History obtained from History obtained from: Patient - Additional information Additional information: 33-year-old female with unknown past medical history presents by EMS from home for suicidal ideation and bizarre behavior. Police were called to the home and patient was intermittently saying that she wanted to kill her roommates and herself. She also stated that she was going to run into the knife block in the house and cut herself. On arrival patient is mistrustful, making bizarre statements about the president and fearful that we are trying to hurt her. At this time she is calm and cooperative however and compliant with nursing staff. She did mention that her family is in [place] and she is afraid she will not get to see them. Review of Systems Unable to obtain: [employer] PAST MEDICAL HISTORY - Past Medical History Cardiovascular: None Respiratory: None Neuro: None Endocrine/Autoimmune: None GI: None BILINGUAL RESEARCH INTERVIEWER: Ectopic : None Musculoskeletal: None Derm: None - Past Surgical History /BILINGUAL RESEARCH INTERVIEWER: Other - Present Medications Home Medications: Ambulatory Orders Medication Instructions Recorded Confirmed Ashwagandha Root Extract 1 cap PO DAILY 05/17/23 05/17/23 [Ashwagandha] - Allergies Allergies/Adverse Reactions: Allergies Allergy/AdvReac Type Severity Reaction Status Date / Time No Known Drug Allergies Allergy Verified 05/17/23 20:31 - Social History Does the pt smoke?: No Smoking Status: Never smoker Does the pt drink ETOH?: Yes Does the pt have substance abuse?: Yes Substance Use and Type: Marijuana PD ED PE NORMAL - Vitals Vital signs reviewed: Yes - General General: Alert and oriented X 3, No acute distress - HEENT HEENT: Atraumatic - Neck Neck: Supple, no meningeal sign - Cardiac Cardiac: RRR, Strong equal pulses - Respiratory Respiratory: No respiratory distress - Abdomen Abdomen: Soft, Non tender, Non distended - Derm Derm: Normal color, Warm and dry, No rash - Extremities Extremities: No deformity, No tenderness to palpate, Normal ROM s pain, No edema - Neuro Neuro: Alert and oriented X 3, computer meteorologist 2-12 intact, Normal speech - Psych Psych: Other (bizarre thought process, SI/HI) Results - Vitals Vitals: Vital Signs - 24 hr 05/17/23 05/18/23 20:32 00:37 Temperature 37.1 C Heart Rate 120 H 63 Respiratory 16 16 Rate Blood Pressure 125/63 124/72 O2 Saturation 97 100 Oxygen O2 Source Room air - Labs Labs: Laboratory Tests 05/17/23 05/17/23 05/17/23 20:42 20:42 20:47 WBC 10.1 RBC 4.63 Hgb 13.9 Hct 42.0 MCV 90.7 MCH 30.0 MCHC 33.1 RDW 13.4 Plt Count 227 MPV 9.8 Neut # (Auto) 7.4 H Lymph # (Auto) 1.9 [place] # (Auto) 0.7 Eos # (Auto) 0.2 Baso # (Auto) 0.1 Absolute Nucleated RBC 0.00 Nucleated RBC % 0.0 Sodium 137 Potassium 3.8 Chloride 108 Carbon Dioxide 21 Anion Gap 8.0 BUN 14 Creatinine 0.7 Estimated GFR (MDRD) 98 Glucose 93 Calcium 9.4 Total Bilirubin 0.5 AST 12 ALT 10 Alkaline Phosphatase 38 L Total Protein 7.1 Albumin 4.7 Globulin 2.4 Albumin/Globulin Ratio 2.0 Urine Color YELLOW Urine Clarity CLOUDY Urine pH 6.0 Ur Specific [place] >=1.030 H Urine Protein NEGATIVE Urine Glucose (UA) NEGATIVE Urine Ketones TRACE Urine Occult Blood NEGATIVE Urine Nitrite NEGATIVE Urine Bilirubin NEGATIVE Urine Urobilinogen 0.2 (NORMAL) Ur Leukocyte Esterase SMALL H Urine RBC 0-5 Urine WBC 6-10 H Ur Squamous Epith Cells MANY Squamous H Urine Bacteria Many H Urine Mucus Moderate Strands Ur Microscopic Review INDICATED Urine Culture Comments NOT INDICATED Urine HCG, Qual NEGATIVE Salicylates < 1.5 Urine Opiates Screen NEGATIVE Ur Buprenorphine Scrn NEGATIVE Ur Oxycodone Screen NEGATIVE Urine Methadone Screen NEGATIVE Acetaminophen 0.1 Ur Barbiturates Screen NEGATIVE Ur Tricyclics Screen NEGATIVE Ur Phencyclidine Scrn NEGATIVE Ur Amphetamine Screen NEGATIVE U Methamphetamines Scrn NEGATIVE U Benzodiazepines Scrn NEGATIVE Urine Cocaine Screen NEGATIVE U Cannabinoids Screen POSITIVE H Ur Drug Screen Comment CUTOFF CONC BELOW: Ethyl Alcohol < 10.0 PD Medical Decision Making - ED course Complexity details: reviewed old records, reviewed results, re-evaluated patient, considered differential, d/w patient ED course: Patient with suicidal ideations, delusional behavior and thought processes. Patient mentions contacting the president and being mistrustful of and hating "the people at the top". Calm and cooperative at this time. Patient exhibited brief agitation, mistrustful of nursing staff. Ativan given for anxiolysis. Able to be verbally de-escalated by nursing staff. Laboratory work reviewed. Patient is medically cleared for DCR and psychiatric evaluation. DCR has evaluated the patient and have completed their assessment. They are very familiar with the patient and states that she is actually improved from her baseline. Patient seems to be very well-controlled until the day before her menstrual cycle starts and she can have breakthrough episodes of abnormal behavior. A lot of the patient's issues seem to surround stress from her living situation and disagreements with her roommate. She has a significant other in the room with her now who will take the patient home with them so that she can avoid further exacerbations tonight. She will arrange outpatient follow-up with her psychiatrist tomorrow and they will ensure that there is a stable living situation so that further exacerbations can be avoided. Patient is calm, cooperative, acting appropriately, she and significant other at bedside are in agreement with plan. Patient discharged home in stable condition. Departure - Departure Disposition: 01 Home, Self Care Clinical Impression: Suicidal ideation Condition: Stable Instructions: ED Depression Forms: PCP List Discharge Date/Time: 05/18/23 00:37
[2023-05-17 21:03] LABS: BASOPHILS # (AUTO) 0.1 10^3/uL (0.0-0.1); BASOPHILS % (AUTO) 0.6 %; EOSINOPHILS # (AUTO) 0.2 10^3/uL (0.0-0.7); EOSINOPHILS % (AUTO) 1.6 %; HGB - HEMOGLOBIN 13.9 g/dL (12.0-16.0); LYMPHOCYTES # (AUTO) 1.9 10^3/uL (1.5-3.5); LYMPHOCYTES % (AUTO) 18.6 %; MEAN CORPUSCULAR HGB CONC 33.1 g/dL (32.0-36.0); MEAN CORPUSCULAR VOLUME 90.7 fL (81.0-99.0); MEAN PLATELET VOLUME 9.8 fL (7.9-10.8); MONOCYTES # (AUTO) 0.7 10^3/uL (0.0-1.0); MONOCYTES % (AUTO) 6.4 %; NEUTROPHILS # (AUTO) 7.4 10^3/uL (1.5-6.6); NEUTROPHILS % (AUTO) 72.6 %; PLT - PLATELET COUNT 227 10^3/uL (130-450); RED BLOOD COUNT 4.63 10^6/uL (4.20-5.40); RED CELL DISTRIBUTION WIDTH 13.4 % (12.0-15.0); WHITE BLOOD COUNT 10.1 x10^3/uL (4.8-10.8)
[2023-05-17 21:03] LABS: CLARITY,URINE CLOUDY (CLEAR); HCG UR QUAL NEGATIVE
[2023-05-17 21:06] LABS: RBC,URINE 0-5 /HPF (0-5)
[2023-05-17 21:07] LABS: BACTERIA,URINE Many /HPF (None Seen); MUCUS,URINE Moderate Strands; SQUAMOUS EPITHELIAL CELL,UR MANY Squamous (<= Few)
[2023-05-17 21:11] LABS: AMPHETAMINE SCREEN,URINE NEGATIVE (NEGATIVE); BARBITURATE SCREEN,UR NEGATIVE (NEGATIVE); BENZODIAZEPINES SCREEN, URINE NEGATIVE (NEGATIVE); BUPRENORPHINE SCREEN, URINE NEGATIVE (NEGATIVE); COCAINE SCREEN URINE NEGATIVE (NEGATIVE); METHADONE SCREEN, URINE NEGATIVE (NEGATIVE); METHAMPHETAMINES SCREEN, URINE NEGATIVE (NEGATIVE); OPIATE SCREEN, URINE NEGATIVE (NEGATIVE); OXYCODONE SCREEN, URINE NEGATIVE (NEGATIVE); THC CANNABINOID SCREEN, URINE POSITIVE (NEGATIVE); TRICYCLIC ANTIDEPRESSANT,URINE NEGATIVE (NEGATIVE)
[2023-05-17 21:17] LABS: ACETAMINOPHEN 0.1 ug/mL; ALBUMIN 4.7 g/dL (3.2-5.5); ALKALINE PHOSPHATASE 38 IU/L (42-121); ALT ALANINE AMINOTRANSFERASE 10 IU/L (10-60); AST ASPARTATE AMINOTRANSFERASE 12 IU/L (10-42); BILIRUBIN,TOTAL 0.5 mg/dL (0.2-1.0); BUN - BLOOD UREA NITROGEN 14 mg/dL (6-20); CALCIUM 9.4 mg/dL (8.5-10.3); CARBON DIOXIDE - CO2 21 mmol/L (21-32); CHLORIDE 108 mmol/L (101-111); CREATININE 0.7 mg/dL (0.6-1.3); ETOH - ETHANOL < 10.0 mg/dL; GFR - MDRD 98 (>89); GLUCOSE 93 mg/dL (74-104); POTASSIUM 3.8 mmol/L (3.5-4.5); SODIUM 137 mmol/L (135-145); TOTAL PROTEIN 7.1 g/dL (6.4-8.9)
[2023-05-17] MEDS ORDERED: LORazepam 2 MG/ML VIAL IVP STA (21:22)
[2023-05-17 22:01] LABS: SALICYLATE < 1.5 mg/dL
[2023-05-18 00:42] VITALS: BP 124/72; O2SAT 100
== END 2023-05-18 00:37 | disposition home or self-care (01) ==
LOC: EDBD → EDUNIT# → ED 20:23
DX: R45.851 Suicidal ideations (principal); Z11.52 Encounter for screening for COVID-19; Z79.899 Other long term (current) drug therapy
CPT/HCPCS: 36415; 80053; 80306; 80307; 80320; 80329; 81001; 81003; 81025; 85025; 87086; 87635; 93005; 99283; 99284

== ENCOUNTER 2023-09-04 10:52 | Outpatient (CLI) | payer BC ==
[2023-09-04 22:21] LABS: CHLAMYDIA TRACHOMATIS DNA NEGATIVE (NEGATIVE); NEISSERIA GONORRHOEAE DNA NEGATIVE (NEGATIVE)
[2023-09-04 23:06] LABS: TRICHOMONAS VAGINALIS DNA POSITIVE (NEGATIVE)
[2023-09-05 05:11] LABS: HBsAG SCREEN Negative (Negative)
[2023-09-05 07:09] LABS: RPR Non Reactive (Non Reactive)
== END 2023-09-04 10:53 | disposition home or self-care (01) ==
LOC: LAB 10:52
PROVIDERS: ATTEND Obstetrics & Gynecology
DX: Z11.3 Encounter for screening for infections with a predominantly sexual mode of transmission (principal)
CPT/HCPCS: 36415; 86592; 87340; 87389; 87491; 87591; 87661

== ENCOUNTER 2023-10-04 17:05 | Outpatient (CLI) | payer BC ==
--- NOTE | 2023-10-04 21:27 | XRAY Report ---
PROCEDURE: Knee 3V LT INDICATIONS: PREPATELLAR BURSITIS OF LEFT KNEE TECHNIQUE: 3 views of the knee(s) were acquired. COMPARISON: None. FINDINGS: Bones: No fractures or dislocations. No suspicious bony lesions. There are small intercondylar os teophytes. Soft tissues: No knee joint effusion. No suspicious soft tissue calcifications or masses. IMPRESSION: No acute bony abnormality. Mild degenerative change. Reviewed by: Soco Bustos MD on 10/04/2023 9:26 PM PDT Approved by: Soco Bustos MD on 10/04/2023 9:26 PM PDT Station ID: [id number]
== END 2023-10-04 17:06 | disposition home or self-care (01) ==
LOC: DI 17:05
PROVIDERS: ATTEND Physician Assistant Medical
DX: M17.12 Unilateral primary osteoarthritis, left knee (principal)

== ENCOUNTER 2024-03-02 12:38 | Outpatient (CLI) | payer BC ==
[2024-03-02 12:55] LABS: HCT - HEMATOCRIT 41.8 % (37.0-47.0); HGB - HEMOGLOBIN 13.6 g/dL (12.0-16.0); MEAN CORPUSCULAR HEMOGLOBIN 30.2 pg (27.0-31.0); MEAN CORPUSCULAR HGB CONC 32.5 g/dL (32.0-36.0); MEAN CORPUSCULAR VOLUME 92.7 fL (81.0-99.0); MEAN PLATELET VOLUME 9.9 fL (7.9-10.8); RED BLOOD COUNT 4.51 10^6/uL (4.20-5.40); RED CELL DISTRIBUTION WIDTH 13.1 % (12.0-15.0); WHITE BLOOD COUNT 5.4 x10^3/uL (4.8-10.8)
[2024-03-02 13:22] LABS: THYROID STIMULATING HORMONE 0.9 uIU/mL (0.34-5.60)
[2024-03-02 20:32] LABS: ESTIMATED AVERAGE GLUCOSE 94 mg/dL (70-100); HEMOGLOBIN A1c% 4.9 % (4.27-6.07)
[2024-03-02 23:29] LABS: CHLAMYDIA TRACHOMATIS DNA NEGATIVE (NEGATIVE); NEISSERIA GONORRHOEAE DNA NEGATIVE (NEGATIVE); TRICHOMONAS VAGINALIS DNA NEGATIVE (NEGATIVE)
[2024-03-03 03:11] LABS: HBsAG SCREEN Negative (Negative); HIV SCREEN 4TH GENERATION Non Reactive (Non Reactive)
[2024-03-03 08:11] LABS: RPR Non Reactive (Non Reactive)
[2024-03-03 23:08] LABS: HCV AB Non Reactive (Non Reactive)
== END 2024-03-02 12:39 | disposition home or self-care (01) ==
LOC: LAB 12:38
PROVIDERS: ATTEND Obstetrics & Gynecology
DX: Z13.1 Encounter for screening for diabetes mellitus (principal); Z13.0 Encounter for screening for diseases of the blood and blood-forming organs and certain disorders involving the immune mechanism; Z11.3 Encounter for screening for infections with a predominantly sexual mode of transmission; Z13.29 Encounter for screening for other suspected endocrine disorder
CPT/HCPCS: 36415; 83036; 84443; 85027; 86592; 86803; 87340; 87389; 87491; 87591; 87661